=== PATIENT | female | born 2000 | race Caucasian/White ===

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

== ENCOUNTER → 2022-01-18 09:30 | Outpatient (BNVA) | payer MEDICAID, SELFPAY | PROVIDERS: Family Provider Nurse Practitioner Family; PCP Nurse Practitioner Family; Visit Provider Obstetrics & Gynecology | DX: Z34.90 Encounter for supervision of normal pregnancy, unspecified, unspecified trimester (principal) | CPT/HCPCS: 81000 ==

== ENCOUNTER 2022-02-22 10:19 | Outpatient (CLI) | payer MEDICAID, SELFPAY ==
[2022-02-22 12:07] LABS: HIV 1 & 2 Antibody Non-Reactive (Non-Reactiv); HIV 1 & 2 Antigen Non-Reactive (Non-Reactiv)
[2022-02-22 12:09] LABS: Rubella IgG 10.1 IU/mL (0.0-10.0)
[2022-02-22 12:13] LABS: Hepatitis B Surface Antigen Non-Reactive (Nonreactive); Hepatitis C Virus Antibody Non-Reactive (Nonreactive)
== END 2022-02-22 10:20 | disposition home or self-care (01) ==
LOC: LAB 10:22
PROVIDERS: Visit Provider Obstetrics & Gynecology
DX: Z34.90 Encounter for supervision of normal pregnancy, unspecified, unspecified trimester (principal)
CPT/HCPCS: 36415; 80307; 81000; 86762; 86803; 86850; 86900; 87086; 87340; 87491; 87591; 87806

== ENCOUNTER → 2022-02-23 11:07 | Outpatient (BNVA) | payer MEDICAID, SELFPAY | PROVIDERS: Family Provider Nurse Practitioner Family; PCP Nurse Practitioner Family; Visit Provider Obstetrics & Gynecology | DX: Z34.90 Encounter for supervision of normal pregnancy, unspecified, unspecified trimester (principal) | CPT/HCPCS: 86592 ==

== ENCOUNTER → 2022-03-01 10:02 | Outpatient (BNVA) | payer MEDICAID, SELFPAY | PROVIDERS: Family Provider Nurse Practitioner Family; PCP Nurse Practitioner Family; Visit Provider Obstetrics & Gynecology | DX: Z34.90 Encounter for supervision of normal pregnancy, unspecified, unspecified trimester (principal) | CPT/HCPCS: 84315; 87086 ==

== ENCOUNTER → 2022-03-15 11:00 | Outpatient (BNVA) | payer MEDICAID, SELFPAY | PROVIDERS: Family Provider Nurse Practitioner Family; PCP Nurse Practitioner Family; Visit Provider Obstetrics & Gynecology | DX: Z34.90 Encounter for supervision of normal pregnancy, unspecified, unspecified trimester (principal) | CPT/HCPCS: 81000; 84443; 85025; 87086 ==

== ENCOUNTER → 2022-03-18 12:40 | Outpatient (BNVA) | payer MEDICAID, SELFPAY | PROVIDERS: Family Provider Nurse Practitioner Family; PCP Nurse Practitioner Family; Visit Provider Emergency Medicine | DX: J02.9 Acute pharyngitis, unspecified (principal); J00 Acute nasopharyngitis [common cold]; J02.8 Acute pharyngitis due to other specified organisms; B97.89 Other viral agents as the cause of diseases classified elsewhere | CPT/HCPCS: 87071; 87880 ==

== ENCOUNTER → 2022-04-06 11:00 | Outpatient (BNVA) | payer MEDICAID, SELFPAY | PROVIDERS: Family Provider Nurse Practitioner Family; PCP Nurse Practitioner Family; Visit Provider Obstetrics & Gynecology | DX: Z34.90 Encounter for supervision of normal pregnancy, unspecified, unspecified trimester (principal) | CPT/HCPCS: 81000; 87086 ==

== ENCOUNTER → 2022-05-01 10:54 | Outpatient (BNVA) | payer MEDICAID, SELFPAY | PROVIDERS: Family Provider Nurse Practitioner Family; PCP Nurse Practitioner Family; Visit Provider Obstetrics & Gynecology | DX: Z34.90 Encounter for supervision of normal pregnancy, unspecified, unspecified trimester (principal) | CPT/HCPCS: 81000; 87086 ==

== ENCOUNTER → 2022-06-01 12:48 | Outpatient (BNVA) | payer MEDICAID, SELFPAY | PROVIDERS: Family Provider Nurse Practitioner Family; PCP Nurse Practitioner Family; Visit Provider Obstetrics & Gynecology | DX: Z34.90 Encounter for supervision of normal pregnancy, unspecified, unspecified trimester (principal) | CPT/HCPCS: 81000; 82950; 85025; 86850 ==

== ENCOUNTER → 2022-06-09 14:45 | Outpatient (BNVA) | payer MEDICAID, SELFPAY | PROVIDERS: Family Provider Nurse Practitioner Family; PCP Nurse Practitioner Family; Visit Provider Obstetrics & Gynecology | DX: Z34.90 Encounter for supervision of normal pregnancy, unspecified, unspecified trimester (principal) | CPT/HCPCS: 81000; 87086 ==

== ENCOUNTER → 2022-06-23 13:28 | Outpatient (BNVA) | payer MEDICAID, SELFPAY | PROVIDERS: Family Provider Nurse Practitioner Family; PCP Nurse Practitioner Family; Visit Provider Obstetrics & Gynecology | DX: Z34.90 Encounter for supervision of normal pregnancy, unspecified, unspecified trimester (principal) | CPT/HCPCS: 81000 ==

== ENCOUNTER → 2022-07-10 15:10 | Outpatient (BNVA) | payer MEDICAID, SELFPAY | PROVIDERS: Family Provider Nurse Practitioner Family; PCP Nurse Practitioner Family; Visit Provider Nurse Practitioner Women's Health | DX: O26.899 Other specified pregnancy related conditions, unspecified trimester (principal); Z67.91 Unspecified blood type, Rh negative; O26.86 Pruritic urticarial papules and plaques of pregnancy (PUPPP); Z3A.00 Weeks of gestation of pregnancy not specified | CPT/HCPCS: 81000; 85025 ==

== ENCOUNTER → 2022-07-21 13:40 | Outpatient (BNVA) | payer MEDICAID, SELFPAY | PROVIDERS: Family Provider Nurse Practitioner Family; PCP Nurse Practitioner Family; Visit Provider Obstetrics & Gynecology | DX: Z34.90 Encounter for supervision of normal pregnancy, unspecified, unspecified trimester (principal) | CPT/HCPCS: 81000; 87081 ==

== ENCOUNTER → 2022-07-27 11:10 | Outpatient (BNVA) | payer MEDICAID, SELFPAY | PROVIDERS: Family Provider Nurse Practitioner Family; PCP Nurse Practitioner Family; Visit Provider Obstetrics & Gynecology | DX: Z36.9 Encounter for antenatal screening, unspecified (principal) | CPT/HCPCS: 76816 ==

== ENCOUNTER → 2022-07-28 11:30 | Outpatient (BNVA) | payer MEDICAID, SELFPAY | PROVIDERS: Family Provider Nurse Practitioner Family; PCP Nurse Practitioner Family; Visit Provider Obstetrics & Gynecology | DX: Z34.90 Encounter for supervision of normal pregnancy, unspecified, unspecified trimester (principal) | CPT/HCPCS: 81000 ==

== ENCOUNTER → 2022-08-04 10:50 | Outpatient (BNVA) | payer MEDICAID, SELFPAY | PROVIDERS: Family Provider Nurse Practitioner Family; PCP Nurse Practitioner Family; Visit Provider Obstetrics & Gynecology | DX: Z34.90 Encounter for supervision of normal pregnancy, unspecified, unspecified trimester (principal) | CPT/HCPCS: 84315; 87086 ==

== ENCOUNTER 2022-08-11 04:41 | Inpatient (IN) | payer MEDICAID, SELFPAY ==
[2022-08-11] VITALS (27 sets, daily range): BP systolic 120–141; BP diastolic 60–89; PULSE 67–96; RESP 13–18; TEMP 36.5–36.8; O2SAT 96–100; BMI 34.2
--- NOTE | 2022-08-11 04:48 | USR_ITS ---
PROCEDURE INFORMATION: Exam: US , Limited Exam date and time: 08/11/2022 6:04 AM Age: 22 years old Clinical indication: Screening exam; Other: Check for position; ; Additional info: Verify presentation TECHNIQUE: Imaging protocol: Real-time ultrasound of the maternal uterus with image documentation. Exam focused on the clinical indication. COMPARISON: [place] [id number] 07/27/2022 11:17 AM FINDINGS: Single living fetus in breech position. heart activity documented by the technologist, 164 bpm. Anterior placenta, grade 3. No visible placental abnormality on the provided images. Subjectively, amniotic fluid volume appears lower limit of normal to mildly decreased for gestation, GHADA 5.4 cm. The region of the cervix is not well visualized at this time. measurements were not obtained at this time. Evaluation of anatomy was not performed at this time. No visible maternal adnexal abnormality. The urinary bladder was not completely evaluated/imaged at this time. US/US OB limited [id number] IMPRESSION: 1. Single living intrauterine fetus, breech position. 2. Subjectively, amniotic fluid volume appears lower limit of normal to mildly decreased for gestation, GHADA 5.4 cm. 3. Anterior placenta. 4. Other details discussed above.
[2022-08-11 05:16] LABS: Basophils # 0.1 10^3/uL (0.0-0.1); Basophils % 0.5 %; Eosinophils # 0.1 10^3/uL (0.0-0.8); Hematocrit 38.5 % (37.0-47.0); Hemoglobin 12.5 g/dL (11.5-15.3); Lymphocytes % 28.2 %; Mean Corpuscular HGB Conc 32.5 g/dL (30.0-36.0); Mean Corpuscular Hemoglobin 29.8 pg (28.0-34.0); Mean Corpuscular Volume 91.9 fl (81-99); Mean Platelet Volume 10.9 fL (7.4-10.4); Monocytes # 0.7 10^3/uL (0.2-0.9); Neutrophils # 6.54 10^3/uL (1.8-8.0); Neutrophils % 62.4 %; Nucleated Red Blood Cells % 0 %; Platelet Count 304 10^3/cmm (130-400); Red Blood Count 4.19 10^6/uL (4.1-5.3); Red Cell Distribution Width 13.2 % (12.1-15.1); White Blood Count 10.5 10^3/uL (4.5-13.0)
[2022-08-11 05:35] LABS: Alanine Aminotransferase 12 U/L (0-33); Albumin Level 3.8 g/dL (3.5-5.2); Alkaline Phosphatase 160 U/L (35-105); Anion Gap 15.9 (5-19); Aspartate Amino Transferase 15 U/L (0-32); Blood Urea Nitrogen 9 mg/dL (6-20); Calcium 8.9 mg/dL (8.5-10.5); Carbon Dioxide 19 mmol/L (22-29); Chloride 102 mmol/L (98-107); Globulin 3.4 g/dL (1.3-4.6); Glomerular Filtration Rate 203.5 mL/min (90-130); Glucose 83 mg/dL (65-115); Osmolality Calculated 274 mOsm/kg (285-295); Potassium 3.9 mmol/L (3.5-5.1); Sodium 133 mmol/L (136-145); Total Bilirubin 0.3 mg/dL (0.15-1.2); Total Protein 7.2 g/dL (6.6-8.7)
[2022-08-11] MEDS: lactated ringers 1,000 ML 999 ML IV (06:12)
[2022-08-11] MEDS: metoclopramide 5 mg/mL SDV 2 mL 10 MG IVP (06:44)
[2022-08-11] MEDS: clindamycin 900 MG/50 ML PREMIX 100 MG IV (06:45)
[2022-08-11] MEDS: citric acid-sodium citrate 30 mL UDC PO (06:45)
[2022-08-11] MEDS: famotidine 20 mg/2 mL INJ IVP (06:45)
--- NOTE | 2022-08-11 07:08 | W.PM.OPSUD ---
Surgery/Procedure H&P Update DATE OF PROCEDURE: August 11, 2022 DATE H&P PERFORMED: 08/04/22 H&P UPDATE INFORMATION: I have reviewed H&P completed within last 30 days, I have examined patient prior to procedure and No changes to prior documentation PLANNED PROCEDURE: Operation Date: 08/11/22 07:20 Proposed Procedures p Section 16060,O32.1XX0(Not Applicable) - Lovely Fajardo MD Related Problem List Diagnoses (1) Breech presentation, no version: (2) Rh negative status during : (3) Supervision of normal :
[2022-08-11] MEDS: methylergonovine 0.2 mg/mL INJ 1 mL IM (07:50)
--- NOTE | 2022-08-11 08:04 | ANES.PREANE2 ---
Pre-Anesthetic Assessment Height/Weight: Height 1.7 m Weight 99.337 kg Temp Pulse BP O2 Del Method 98.2 F 79 134/71 Room Air 08/11/22 05:24 08/11/22 05:21 08/11/22 05:21 08/11/22 05:08 Operation Date: 08/11/22 07:20 Proposed Procedures p Section 45897,O32.1XX0(Not Applicable) - Lovely Fajardo MD Was Beta Nikki taken within 24 hours: N/A Was Clonidine taken within 24 hours: N/A Last Intake: 20:30 Social No tobacco Exam alert and oriented x 3 Airway Submandibular: within normal limits Cervical ROM: within normal limits Mallampati: Class II Dentition: full History/ROS No significant history except as noted Pulmonary None reported CV/HEM None reported None reported Hepatic None reported GI None reported Metabolic None reported Musc/skel None reported Neuropsych None reported Anesthetic Plan ASA status: 2 Anesthesia: Regional (specify below) Other: Spinal with general as backup Risk of > 500 ml blood loss (7ml/kg in children): Yes, adequate IV access and fluids planned Medications/Allergies Home Medications Medication Instructions Recorded Confirmed Last Taken Type PNV 153-FA 400 mcg-om3 35 mg-dha 1 tab PO DAILY 12/23/21 08/11/22 08/10/22 History 25 mg-epa 5 mg-fish oil chew tablet ( Gummies) ferrous sulfate 325 mg (65 mg 325 mg PO DAILY 06/09/22 08/11/22 08/10/22 History iron) tablet Allergies Allergy/AdvReac Type Severity Reaction Status Date / Time cefdinir [From Omnicef] AdvReac breaks out Verified 08/11/22 05:04 Current Medications Generic Name Dose Route Start Last Admin Trade Name Freq PRN Reason Stop Dose Admin Lactated Ringer's 1,000 mls @ 125 mls/hr 08/11/22 04:45 08/11/22 06:12 Lactated Ringers IV 999 mls/hr .Q8H LICHA Administration PFSH Anesthesia Medical History Eustachian tube dysfunction No pertinent past medical history neghx: htn,dm,thyroid,dvt/pe PCP: None Surgical History No pertinent past surgical history Family History Denies family history of Colon cancer Ovarian cancer Diabetes Heart disease Hypercholesteremia Breast cancer Hypertension Uterine cancer Thyroid disease Stroke Social History Smoking and tobacco status: never smoked Female Reproductive History : 1 Data Anesthesia 08/11/22 05:00 08/11/22 05:00 Short CBC 08/11/22 Range/Units 05:00 WBC 10.5 (4.5-13.0) 10^3/uL Hgb 12.5 (11.5-15.3) g/dL Hct 38.5 (37.0-47.0) % MCV 91.9 (81-99) fl Plt Count 304 (130-400) 10^3/cmm Neut % (Auto) 62.4 % Neut # (Auto) 6.54 (1.8-8.0) 10^3/uL BMP 08/11/22 05:00 Sodium 133 L Potassium 3.9 Chloride 102 Carbon Dioxide 19 L BUN 9 Creatinine 0.4 L Glucose 83 Calcium 8.9 Liver Function 08/11/22 Range/Units 05:00 Total Bilirubin 0.3 (0.15-1.2) mg/dL AST 15 (0-32) U/L ALT 12 (0-33) U/L Alkaline Phosphatase 160 H (35-105) U/L Albumin 3.8 (3.5-5.2) g/dL Cardiac Studies: No Data to Display
--- NOTE | 2022-08-11 08:28 | P.OP_ITS ---
Operative Report Date of procedure: August 11, 2022 Pre-op diagnosis: iup@39 weeks, breech presentation Post-op diagnosis: same Post-op findings: term male in complete breech presentation Procedure done: primary Pathology: none sent Surgeon: Lovely Fajardo Anesthesia: Other (spinal) Estimated blood loss (mL): 500 IV fluids (mL): 1,600 Urine output (mL): 50 Complications: none Condition: stable Disposition: floor Procedure: The patient was taken to the operating room where spinal anesthesia was administered and found to be adequate. She was prepped and draped in the normal sterile fashion in the dorsal supine position with a leftward tilt. A Pfan nenstiel skin incision was made and carried down to the underlying layer of fascia. The fascia was nicked in the midline and extended laterally with the Wei scissors. The fascia was then tented up and the rectus muscles dissected off sharply. The rectus muscles were and the peritoneum entered bluntly with the digit. The peritoneal incision was extended superiorly and inferiorly with good visualization of the bladder. The Andre O retractor was placed. It was clear of any bowel or omentum. The bladder flap was created sharply with the Metzenbaum scissors. A low transverse uterine incision was made and carried down to the bag of water. The bag of water was ruptured and the uterine incision extended cephalocaudad. The breech was grasped and brought through the incision. This was followed by the the body and head. The nose and mouth were bulb suctioned. The baby was allowed to rest, while being dried, for 1 minute and then the cord was clamped and cut. The baby was handed to the [facility] nurse. The placenta was delivered by expression. The uterus was exteriorized and cleared of all clots and debris. The uterus had decreased tone. The patient was given a dose of methergine IM and 20 units of pitocin IM in the uterine fundus. The uterine incision was closed with 0 Vicryl in a running fashion. A second imbricating layer of 3-0 Monocryl was used to close the uterus. The bladder flap was closed with 3-0 Monocryl. There was excellent hemostasis. The Andre O retractor was removed. The uterus was returned to the abdomen. The peritoneum was closed with 3-0 Monocryl, incorporating the rectus muscle. The fascia was closed with 0 Vicryl in 2 separate sutures overlapping in the midline. The skin was closed with absorbable sadaf. Apgars on baby 9 at 1 minute and 9 at 5 minutes. weight 5 pounds 8 ounces. Mother and baby were stable post delivery.
[2022-08-11] MEDS: dextrose 5%-lactated ringers 1,000 ML 125 ML IV (10:08)
[2022-08-11] MEDS: ketorolac 30 mg/mL INJ IVP ×3 (10:08→22:05)
--- NOTE | 2022-08-11 16:18 | PC.NURSE ---
Patient up to chair at this time with standby assist. MARCIE RN
[2022-08-11 19:43] LABS: Hematocrit 34.4 % (37.0-47.0); Hemoglobin 11.2 g/dL (11.5-15.3); Mean Corpuscular HGB Conc 32.6 g/dL (30.0-36.0); Mean Corpuscular Hemoglobin 30.6 pg (28.0-34.0); Mean Platelet Volume 10.9 fL (7.4-10.4); Platelet Count 259 10^3/cmm (130-400); Red Blood Count 3.66 10^6/uL (4.1-5.3); Red Cell Distribution Width 13.3 % (12.1-15.1); White Blood Count 12.2 10^3/uL (4.5-13.0)
[2022-08-12] VITALS (9 sets, daily range): BP systolic 113–132; BP diastolic 57–71; PULSE 82–103; RESP 17–18; TEMP 36.4–36.7
[2022-08-12] MEDS: ketorolac 30 mg/mL INJ IVP (03:55)
[2022-08-12] MEDS: docusate sodium 100 mg Capsule PO ×2 (09:06→20:54)
[2022-08-12] MEDS: prenatal vitamin Capsule 1 CAP PO (09:06)
[2022-08-12] MEDS: HYDROcodone-acetaminophen 5-325 mg Tablet PO ×3 (09:06→20:55)
--- NOTE | 2022-08-12 13:42 | PM.PN ---
Subjective Subjective: The patient is doing well. Her pain is controlled on tylenol and motrin Vitals/I&O/Wt Last Vital Signs Temp 98.1 F 08/12/22 09:08 Pulse 103 H 08/12/22 09:08 Resp 18 08/12/22 08:00 BP 113/57 08/12/22 09:08 Pulse Ox 99 08/11/22 08:55 O2 Del Method Room Air 08/11/22 08:55 08/11/22 08/12/22 08/12/22 22:59 06:59 14:59 Output Total 1000 / 2100 400 / 2500 Balance -1000 / -500 -400 / -900 Weight last 48 hrs Weight 219 lb Physical Exam Narrative: The patient is ambulating, tolerating a regular diet and pain is well controlled. Const: COMMON NORMALS: no acute distress, patient oriented x3, no limitations, healthy appearing, alert and well nourished GENERAL APPEARANCE: cooperative, comfortable, well kempt and well developed ORIENTATION/CONSCIOUSNESS: Yes awake, Yes oriented to person, Yes oriented to place and Yes oriented to time Resp: COMMON NORMALS: normal respiratory effort EFFORT & INSPECTION: Yes able to speak in complete sentences GI: COMMON NORMALS: Soft to palpation and non-tender PALPATION: Yes Soft to palpation Extremity: COMMON NORMALS: no calf tenderness Neuro: COMMON NORMALS: patient oriented x3 SENSORIUM/ORIENTATION: Yes alert, Yes oriented to person, Yes oriented to place and Yes oriented to time Psych: APPEARANCE: Yes well kempt Urinary Catheter Management: Aguirre: Cath Placed During This Visit: yes, but has since been removed by the nurse Reason for Continuing Indwelling Catheter: Decision to DC Catheter Urinary Catheter Date of Insertion: 08/11/22 Urinary Catheter Time of Insertion: 06:50 Date Urinary Catheter Removed: 08/12/22 Time Urinary Catheter Discontinued: 00:15 Data 08/11/22 19:35 08/11/22 05:00 Micro: Microbiology 08/11/22 07:30 Urine Culture - Preliminary Urine Catheterized Attestations Medical Necessity Statement*: The patient will be here two midnights Coding Level of Care Code Acute Code for Chg Fwd Diagnoses
[2022-08-12] MEDS: ibuprofen 800 mg tablet PO ×2 (16:13→20:54)
--- NOTE | 2022-08-12 18:26 | PC.NURSE ---
Rhogam given at 1747. VAlicia LEVI witnessed administration of Rhogam at this time. Tar did not save writers verification of the Rhogam within Tar. Notification was received Rhogam was late and unable to be administered. Blood bank was notified Rhogam was given within time the 20 minute time frame and that writers Vitals signs saved but the verification did not. Blood bank stated to reverify Rhogam and link a nurses note.
[2022-08-13 04:00] VITALS: BP 100/54; PULSE 76
[2022-08-13 04:01] VITALS: TEMP 36.2
[2022-08-13] MEDS: HYDROcodone-acetaminophen 5-325 mg Tablet PO (06:33)
[2022-08-13] MEDS: prenatal vitamin Capsule 1 CAP PO (08:45)
[2022-08-13] MEDS: ibuprofen 800 mg tablet PO (08:45)
[2022-08-13] MEDS: docusate sodium 100 mg Capsule PO (08:45)
--- NOTE | 2022-08-13 08:50 | ANE.PACU2 ---
Inpatient post-anesthesia follow up: Airway intact: Yes Vital signs: Temperature 97.2 F Pulse Rate 76 Respiratory Rate 17 Blood Pressure 100/54 Pulse Oximetry 99 Oxygen Delivery Me thod Room Air Oxygen Flow Rate Fraction of Inspir ed Oxygen Hydration adequate: Yes Nausea and vomiting: No Pain level: 2 Mental status: Baseline
[2022-08-13 09:38] VITALS: BP 124/64; PULSE 103; TEMP 36.2
--- NOTE | 2022-08-13 14:22 | PM.DCS ---
Discharge Providers Date of Admission: 08/11/22 04:41 Date of Discharge: August 13, 2022 Attending Provider at Admission: Lovely Fajardo MD Attending Provider at Discharge: Lovely Fajardo MD Primary Care Provider: Orlin Roper Diagnoses at Discharge Discharge Diagnosis (1) Breech presentation, no version: Status: Acute (2) Rh negative status during : Status: Acute (3) Supervision of normal : Status: Acute Reason for Visit Reason for Visit: C Section Hospital Course Hospital Course The patient was admitted for repeat . She did well postoperatively and was ready for discharge on day #2 Physical Exam Narrative: The patient is doing well today. Pain is well controlled. She is ambulating without difficulty and tolerating a regular diet. Const: COMMON NORMALS: no acute distress, patient oriented x3, no limitations, healthy appearing, alert and well nourished GENERAL APPEARANCE: cooperative, comfortable, well kempt and well developed ORIENTATION/CONSCIOUSNESS: Yes awake, Yes oriented to person, Yes oriented to place and Yes oriented to time Resp: COMMON NORMALS: normal respiratory effort EFFORT & INSPECTION: Yes able to speak in complete sentences GI: COMMON NORMALS: Soft to palpation and non-tender PALPATION: Yes Soft to palpation Extremity: COMMON NORMALS: no calf tenderness Neuro: COMMON NORMALS: patient oriented x3 SENSORIUM/ORIENTATION: Yes alert, Yes oriented to person, Yes oriented to place and Yes oriented to time Psych: APPEARANCE: Yes well kempt Urinary Catheter Management: Aguirre: Cath Placed During This Visit: yes, but has since been removed by the nurse Reason for Continuing Indwelling Catheter: Decision to DC Catheter Urinary Catheter Date of Insertion: 08/11/22 Urinary Catheter Time of Insertion: 06:50 Date Urinary Catheter Removed: 08/12/22 Time Urinary Catheter Discontinued: 00:15 Discharge Data Studies Completed and Pending Completed Studies During Hospitalization Category Date Time Status [place] [id number] Urgent Ultrasound 08/11/22 04:48 Completed Radiology Impressions Obstetrics Ultrasound 08/11/22 04:48 IMPRESSION: 1. Single living intrauterine fetus, breech position. 2. Subjectively, amniotic fluid volume appears lower limit of normal to mildly decreased for gestation, GHADA 5.4 cm. 3. Anterior placenta. 4. Other details discussed above. Laboratory Results WBC 12.2 10^3/uL (4.5-13.0) 08/11/22 19:35 RBC 3.66 10^6/uL (4.1-5.3) L 08/11/22 19:35 Hgb 11.2 g/dL (11.5-15.3) L 08/11/22 19:35 Hct 34.4 % (37.0-47.0) L 08/11/22 19:35 MCV 94.0 fl (81-99) 08/11/22 19:35 MCH 30.6 pg (28.0-34.0) 08/11/22 19:35 MCHC 32.6 g/dL (30.0-36.0) 08/11/22 19:35 RDW 13.3 % (12.1-15.1) 08/11/22 19:35 Plt Count 259 10^3/cmm (130-400) 08/11/22 19:35 MPV 10.9 fL (7.4-10.4) H 08/11/22 19:35 Neut % (Auto) 62.4 % 08/11/22 05:00 Lymph % (Auto) 28.2 % 08/11/22 05:00 [place] % (Auto) 7.0 % 08/11/22 05:00 Eos % (Auto) 1.0 % 08/11/22 05:00 Baso % (Auto) 0.5 % 08/11/22 05:00 Neut # (Auto) 6.54 10^3/uL (1.8-8.0) 08/11/22 05:00 Lymph # (Auto) 3.0 10^3/uL (1.5-6.5) 08/11/22 05:00 [place] # (Auto) 0.7 10^3/uL (0.2-0.9) 08/11/22 05:00 Eos # (Auto) 0.1 10^3/uL (0.0-0.8) 08/11/22 05:00 Baso # (Auto) 0.1 10^3/uL (0.0-0.1) 08/11/22 05:00 Nucleated RBC % (auto) 0 % 08/11/22 05:00 Nucleated RBCs # 0.0 /100WBC 08/11/22 05:00 Sodium 133 mmol/L (136-145) L 08/11/22 05:00 Potassium 3.9 mmol/L (3.5-5.1) 08/11/22 05:00 Chloride 102 mmol/L (98-107) 08/11/22 05:00 Carbon Dioxide 19 mmol/L (22-29) L 08/11/22 05:00 Anion Gap 15.9 (5-19) 08/11/22 05:00 BUN 9 mg/dL (6-20) 08/11/22 05:00 Creatinine 0.4 mg/dL (0.5-0.9) L 08/11/22 05:00 GFR Calculation 203.5 mL/min (90-130) H 08/11/22 05:00 Glucose 83 mg/dL (65-115) 08/11/22 05:00 Calculated Osmolality 274 mOsm/kg (285-295) L 08/11/22 05:00 Calcium 8.9 mg/dL (8.5-10.5) 08/11/22 05:00 Total Bilirubin 0.3 mg/dL (0.15-1.2) 08/11/22 05:00 AST 15 U/L (0-32) 08/11/22 05:00 ALT 12 U/L (0-33) 08/11/22 05:00 Alkaline Phosphatase 160 U/L (35-105) H 08/11/22 05:00 Total Protein 7.2 g/dL (6.6-8.7) 08/11/22 05:00 Albumin 3.8 g/dL (3.5-5.2) 08/11/22 05:00 Globulin 3.4 g/dL (1.3-4.6) 08/11/22 05:00 Blood Type A Negative 08/11/22 05:00 Rho(D) Type Negative 08/11/22 05:00 Antibody Screen Positive 08/11/22 05:00 Antibody Identification Anti-D 08/11/22 05:00 Screen Negative (Negative) 08/11/22 19:35 Vitals Last Vital Signs Temp 97.2 F L 08/13/22 09:38 Pulse 103 H 08/13/22 09:38 Resp 17 08/12/22 17:47 BP 124/64 08/13/22 09:38 Pulse Ox 99 08/11/22 08:55 O2 Del Method Room Air 08/11/22 08:55 Discharge Plan Discharge Patient Disposition: Home Condition: Stable Prescriptions: New ibuprofen 800 mg Tablet 800 mg PO TID Qty: 30 0RF hydrocodone-acetaminophen 5-325 mg Tablet 1 tab PO Q4H PRN (Reason: Moderate To Severe Pain) Qty: 30 0RF Continued Gummies 400 mcg-35 mg- 25 mg-5 mg tablet,chewable 1 tab PO DAILY ferrous sulfate 325 mg (65 mg iron) tablet 325 mg PO DAILY Discharge Orders: Discharge Order (Routine); Ordered 08/13/22 Ordered By: Lovely Fajardo Patient Instructions: Opioid Safety Discharge Attestations Time Spent in Discharge Care*: less than 30 min Quality Metrics Clinical Quality Measures [ No reported AMI, CVA or VTE this stay] Coding Level of Care Code Acute Code for Chg Fwd Diagnoses Breech presentation, no version O32.1XX0 Rh negative status during O26.899; Z67.91 Supervision of normal Z34.90
[2022-08-13 14:33] VITALS: BP 133/65; PULSE 84; TEMP 36.6
[2022-08-13 14:53] VITALS: BP 133/64; RESP 16; TEMP 36.7
== END 2022-08-13 14:54 | disposition home or self-care (01) | DRG 787 ==
PROVIDERS: Admitting Provider Obstetrics & Gynecology; Family Provider Nurse Practitioner Family; PCP Nurse Practitioner Family; Visit Provider Obstetrics & Gynecology
PROC: 10D00Z1 Extraction of Products of Conception, Low, Open Approach (ICD-10-PCS; CPT 59514; principal; 2022-08-11 07:00)
DX: O32.1XX0 Maternal care for breech presentation, not applicable or unspecified (principal); O36.0930 Maternal care for other rhesus isoimmunization, third trimester, not applicable or unspecified; Z3A.39 39 weeks gestation of pregnancy; Z37.0 Single live birth
CPT/HCPCS: 36415; 36430; 51702; 59025; 59409; 76815; 80053; 80503; 85025; 85027; 85460; 86850; 86870; 86900; 87086; 90384; 96372; 96374; 96376; 99211; J1580; J1885; J2210; J2274; J2405; J2590; J2765; J3490; J7120; J7121

== ENCOUNTER → 2023-11-13 08:19 | Outpatient (BNVA) | payer MEDICAID, SELFPAY | PROVIDERS: Family Provider Nurse Practitioner Family; PCP Nurse Practitioner Family; Visit Provider Nurse Practitioner Women's Health | DX: N92.6 Irregular menstruation, unspecified (principal); O99.210 Obesity complicating pregnancy, unspecified trimester; Z78.9 Other specified health status; Z13.29 Encounter for screening for other suspected endocrine disorder | CPT/HCPCS: 81025; 83036; 84443; 84702 ==

== ENCOUNTER → 2023-11-20 08:51 | Outpatient (BNVA) | payer MEDICAID, SELFPAY | PROVIDERS: Family Provider Nurse Practitioner Family; PCP Nurse Practitioner Family; Visit Provider Nurse Practitioner Women's Health | DX: Z36.87 Encounter for antenatal screening for uncertain dates (principal); Z3A.09 9 weeks gestation of pregnancy; Z98.890 Other specified postprocedural states | CPT/HCPCS: 76817 ==

== ENCOUNTER → 2023-11-27 07:57 | Outpatient (BNVA) | payer MEDICAID, SELFPAY | PROVIDERS: Family Provider Nurse Practitioner Family; PCP Nurse Practitioner Family; Visit Provider Nurse Practitioner Women's Health | DX: Z34.90 Encounter for supervision of normal pregnancy, unspecified, unspecified trimester (principal) | CPT/HCPCS: 80307; 81000; 85025; 86592; 86762; 86803; 86850; 86900; 87086; 87340; 87806 ==

== ENCOUNTER → 2023-12-10 13:11 | Outpatient (BNVA) | payer MEDICAID, SELFPAY | PROVIDERS: Family Provider Nurse Practitioner Family; PCP Nurse Practitioner Family; Visit Provider Obstetrics & Gynecology | DX: O09.899 Supervision of other high risk pregnancies, unspecified trimester (principal) | CPT/HCPCS: 81000; 87491; 87591; 88175 ==

== ENCOUNTER → 2024-01-07 09:47 | Outpatient (BNVA) | payer MEDICAID, SELFPAY | PROVIDERS: Family Provider Nurse Practitioner Family; PCP Nurse Practitioner Family; Visit Provider Obstetrics & Gynecology | DX: Z36.4 Encounter for antenatal screening for fetal growth retardation (principal); Z3A.17 17 weeks gestation of pregnancy | CPT/HCPCS: 76815 ==

== ENCOUNTER → 2024-01-16 08:21 | Outpatient (BNVA) | payer MEDICAID, SELFPAY | PROVIDERS: Family Provider Nurse Practitioner Family; PCP Nurse Practitioner Family; Visit Provider Nurse Practitioner Women's Health | DX: O09.899 Supervision of other high risk pregnancies, unspecified trimester (principal) | CPT/HCPCS: 81000; 82105 ==

== ENCOUNTER 2024-01-29 07:28 | Emergency (ER) | payer MEDICAID, SELFPAY ==
[2024-01-29 07:42] VITALS: BP 137/79; PULSE 83; RESP 18; TEMP 36.8; O2SAT 97; BMI 34.5
--- NOTE | 2024-01-29 07:43 | ED_ITS ---
HPI - 2 General: Chief complaint: Vaginal Bleeding Stated complaint: 20 wks pg vaginal bleeding Time Seen by Provider: 01/29/24 07:38 History of Present Illness: 23-year-old G2, P1 female at 19 weeks an d 5 days gestation by first trimester ultrasound. She has noticed vaginal bleeding after she urinates he will have a few drops of blood no active bleeding at this time. She has noted gross movement which is unchanged. No significant cramping or pain. Associated symptoms: Deny abdominal pain or dysuria Related Data Home Medications Medication Instructions Recorded Confirmed docosahexaenoic acid 200 mg mg PO 11/13/23 01/16/24 capsule ( DHA) ferrous sulfate 325 mg (65 mg 325 mg PO DAILY 11/13/23 01/16/24 iron) tablet Allergies Allergy/AdvReac Type Severity Reaction Status Date / Time cefdinir [From Omnicef] AdvReac breaks out Verified 01/16/24 08:26 Review of Systems 2 Const: Denies: fever(s) or chills Card: Denies: chest pain Resp: Denies: dyspnea GI: Denies: abdominal pain : Denies: dysuria, urinary frequency or urinary urgency Musc: Denies: neck pain or back pain Skin/Breast: Denies: rash PFSH ED 2 PFSH: Medical History Rh negative status during No pertinent past medical history neghx: htn,dm,thyroid,dvt/pe PCP: None Surgical History Hx of section (~07/2022) Primary LTCS performed for complete breech presentation. [facility] at [facility]. Family History Denies family history of Colon cancer Ovarian cancer Diabetes Heart disease Hypercholesteremia Breast cancer Hypertension Uterine cancer Thyroid disease Stroke Social History Smoking and tobacco/nicotine status: never used tobacco/nicotine Physical Exam 2 Const: COMMON NORMALS: no acute distress GENERAL APPEARANCE: cooperative and comfortable ORIENTATION/CONSCIOUSNESS: Yes awake, Yes oriented to person, Yes oriented to place and Yes oriented to time HENMT: COMMON NORMALS: normocephalic, atraumatic and hearing grossly normal bilaterally HEAD & SCALP: normocephalic and atraumatic Resp: COMMON NORMALS: normal respiratory effort, No retractions, No use of accessory muscles and clear to auscultation bilaterally AUSCULTATION: clear to auscultation bilaterally Cardio: COMMON NORMALS: regular rate, regular rhythm and No murmurs present (Cardio) RATE: regular rate RHYTHM: regular rhythm GI: COMMON NORMALS: Soft to palpation and No hepatosplenomegaly present A USCULTATION: Yes normoactive bowel sounds PALPATION: Yes Soft to palpation, No Tenderness to palpation present (GI), No Guarding due to palpation present (GI) and Yes No hepatosplenomegaly present Extremity: COMMON NORMALS: normal to inspection, capillary refill normal, no clubbing, cyanosis or edema, no calf tenderness and no pedal edema Neuro: SENSORIUM/ORIENTATION: Yes oriented to person, Yes oriented to place and Yes oriented to time Skin: COMMON NORMALS: no rashes or lesions noted GENERAL SKIN EXAM: no rashes or lesions noted Course 2 Vital Signs: Vital signs: Vital Signs Temperature 98.2 F 01/29/24 07:42 Pulse Rate 83 01/29/24 07:42 Respiratory Rate 18 01/29/24 07:42 Blood Pressure 137/79 01/29/24 07:42 Pulse Oximetry 97 01/29/24 07:42 Oxygen Delivery Me thod Room Air 01/29/24 07:42 MDM - OB/Uterine Contractions Medical Decision Making Discussed Dr. Osei usually sees the patient who prefer to see the patient in the OB department was ordered a UA and a OB ultrasound per his request patient will be moved back to OB he states he will see the patient between cases this morning. Patient is Rh- according to previous laboratory studies. Lab Data 01/29/24 07:53 01/29/24 07:53 Radiology Impressions Obstetrics Ultrasound 01/29/24 07:47 IMPRESSION: 1. Normal anterior placenta with no abruption or previa. 2. Normal amniotic fluid. 3. Visualized cervix is closed. Laboratory Results WBC 6.91 10^3/uL (3.29-11.43) 01/29/24 07:53 RBC 3.91 10^6/uL (3.85-5.65) 01/29/24 07:53 Hgb 11.70 g/dL (11.27-16.99) 01/29/24 07:53 Hct 36.1 % (36-47) 01/29/24 07:53 MCV 92.3 fl (85-98) 01/29/24 07:53 MCH 29.9 pg (27-33) 01/29/24 07:53 MCHC 32.4 g/dL (30-55) 01/29/24 07:53 RDW 12.9 % (12.1-15.1) 01/29/24 07:53 Plt Count 285 10^3/cmm (157-399) 01/29/24 07:53 MPV 10.3 fL (7.4-10.4) 01/29/24 07:53 Neut % (Auto) 64.6 % 01/29/24 07:53 Lymph % (Auto) 27.6 % 01/29/24 07:53 [place] % (Auto) 5.4 % 01/29/24 07:53 Eos % (Auto) 1.4 % 01/29/24 07:53 Baso % (Auto) 0.4 % 01/29/24 07:53 Neut # (Auto) 4.46 10^3/uL (1.8-7.7) 01/29/24 07:53 Lymph # (Auto) 1.9 10^3/uL (0.8-4.8) 01/29/24 07:53 [place] # (Auto) 0.4 10^3/uL (0.2-0.9) 01/29/24 07:53 Eos # (Auto) 0.1 10^3/uL (0.0-0.8) 01/29/24 07:53 Baso # (Auto) 0.0 10^3/uL (0.0-0.1) 01/29/24 07:53 Nucleated RBC % (auto) 0 % 01/29/24 07:53 Nucleated RBCs # 0.0 /100WBC 01/29/24 07:53 Ser , Semi-Qnt 7168.00 mIU/mL 01/29/24 07:53 No radiology studies performed this visit (Ultrasound to be done in OB) Discharge Plan Discharge Patient Disposition: Home Clinical Impression: Vaginal bleeding, Supervision of other high-risk Condition: Stable Prescriptions: No Action DHA 200 mg capsule PO ferrous sulfate 325 mg (65 mg iron) tablet 325 mg PO DAILY Discharge Orders: Discharge ED (Routine); Ordered 01/29/24 Ordered By: Harsha Bean Referrals: Jake Osei MD [Primary Care Provider] - Patient Instructions: Opioid Safety, Pain Management Coding Level of Care Code ED [employer]
--- NOTE | 2024-01-29 07:47 | US_ITS ---
WS: [id number] ULTRASOUND OB FOCUSED HISTORY: Vaginal bleeding 19 weeks 5 days COMPARISON: 01/07/2024 Single intrauterine gestation is identified in cephalic presentation. The cervix appears closed. The entire cervix is not well visualized as it is partially obscured by shadowing. heart rate at 145 BPM. Placenta is anterior with no previa or abruption. Placenta grade 1. Normal amount of amniotic fluid. Single vertical pocket measuring 6 3.2 cm. US/US OB limited [id number] IMPRESSION: 1. Normal anterior placenta with no abruption or previa. 2. Normal amniotic fluid. 3. Visualized cervix is closed.
[2024-01-29 08:04] LABS: Basophils % 0.4 %; Eosinophils # 0.1 10^3/uL (0.0-0.8); Eosinophils % 1.4 %; Hematocrit 36.1 % (36-47); Lymphocytes # 1.9 10^3/uL (0.8-4.8); Lymphocytes % 27.6 %; Mean Corpuscular HGB Conc 32.4 g/dL (30-55); Mean Corpuscular Hemoglobin 29.9 pg (27-33); Mean Corpuscular Volume 92.3 fl (85-98); Mean Platelet Volume 10.3 fL (7.4-10.4); Monocytes # 0.4 10^3/uL (0.2-0.9); Monocytes % 5.4 %; Neutrophils # 4.46 10^3/uL (1.8-7.7); Neutrophils % 64.6 %; Nucleated Red Blood Cells % 0 %; Platelet Count 285 10^3/cmm (157-399); Red Blood Count 3.91 10^6/uL (3.85-5.65); Red Cell Distribution Width 12.9 % (12.1-15.1); White Blood Count 6.91 10^3/uL (3.29-11.43)
[2024-01-29 08:49] LABS: Alanine Aminotransferase 33 U/L (0-33); Albumin Level 3.7 g/dL (3.5-5.2); Alkaline Phosphatase 56 U/L (35-105); Anion Gap 14.7 (5-19); Aspartate Amino Transferase 30 U/L (0-32); Blood Urea Nitrogen 7 mg/dL (6-20); Calcium 8.2 mg/dL (8.5-10.5); Carbon Dioxide 21 mmol/L (22-29); Chloride 104 mmol/L (98-107); Creatinine Clr Calc Pharmacy 261.3309; Globulin 3.2 g/dL (1.3-4.6); Glomerular Filtration Rate 201.5 mL/min (90-130); Glucose 131 mg/dL (65-115); Osmolality Calculated 282 mOsm/kg (285-295); Potassium 3.7 mmol/L (3.5-5.1); Sodium 136 mmol/L (136-145); Total Bilirubin 0.3 mg/dL (0.15-1.2); Total Protein 6.9 g/dL (6.6-8.7)
--- NOTE | 2024-01-29 08:50 | PC.NURSE ---
0750 patient wheeled to OB per dr. ambrocio. unable to assess patient due to immediate transfer over to OB. pt stable upon trasport to OB.
== END 2024-01-29 08:55 | disposition home or self-care (01) ==
PROVIDERS: Emergency Provider Family Medicine; PCP Obstetrics & Gynecology
DX: O20.9 Hemorrhage in early pregnancy, unspecified (principal); Z3A.19 19 weeks gestation of pregnancy
CPT/HCPCS: 36415; 76815; 80053; 84702; 85025; 99284

== ENCOUNTER 2024-01-29 07:55 | Outpatient (CLI) | payer MEDICAID, SELFPAY ==
[2024-01-29 08:13] VITALS: BP 110/57; PULSE 86
[2024-01-29 08:18] VITALS: RESP 17
--- NOTE | 2024-01-29 08:25 | PC.NURSE ---
Brandt LEVI dopplered t @155
[2024-01-29 08:40] LABS: Bilirubin Urine Negative (Negative); Blood Urine Negative (Negative); Glucose Urine UA Negative (Normal); Ketones Urine Negative (Negative); Leukocyte Esterase Urine Trace (Negative); Nitrate Urine Negative (Negative); Protein Urine 1+ (Negative); Urine Appearance Clear (CLEAR); Urine Color Yellow (Yellow); pH Urine 6.5 (5-7)
[2024-01-29 08:43] LABS: Bacteria Urine None Seen /hpf; Hyaline Casts Urine 0-4 /lpf; RBC Urine 0-2 /hpf (0-2); Squamous Epithelial Cell Urine 0-5 /hpf (0-5); WBC Urine 0-5 /hpf (0-5)
[2024-01-29 09:24] VITALS: BP 115/56; PULSE 74
[2024-01-29 09:26] VITALS: BP 115/56; PULSE 74
== END 2024-01-29 09:26 | disposition home or self-care (01) ==
LOC: OPOB 08:03 → OBGYN 08:06
PROVIDERS: PCP Obstetrics & Gynecology; Visit Provider Obstetrics & Gynecology
DX: O46.90 Antepartum hemorrhage, unspecified, unspecified trimester (principal); Z3A.00 Weeks of gestation of pregnancy not specified
CPT/HCPCS: 81001; 99211

== ENCOUNTER → 2024-02-11 14:19 | Outpatient (BNVA) | payer MEDICAID, SELFPAY | PROVIDERS: PCP Obstetrics & Gynecology; Visit Provider Obstetrics & Gynecology | DX: Z36.2 Encounter for other antenatal screening follow-up (principal); Z3A.21 21 weeks gestation of pregnancy | CPT/HCPCS: 76805 ==

== ENCOUNTER → 2024-02-26 14:35 | Outpatient (BNVA) | payer MEDICAID, SELFPAY | PROVIDERS: PCP Obstetrics & Gynecology; Visit Provider Obstetrics & Gynecology | DX: O09.892 Supervision of other high risk pregnancies, second trimester (principal) | CPT/HCPCS: 76816 ==

== ENCOUNTER → 2024-03-18 08:17 | Outpatient (BNVA) | payer MEDICAID, SELFPAY | PROVIDERS: PCP Obstetrics & Gynecology; Visit Provider Nurse Practitioner Women's Health | DX: O09.899 Supervision of other high risk pregnancies, unspecified trimester (principal); O34.219 Maternal care for unspecified type scar from previous cesarean delivery | CPT/HCPCS: 82950; 84315 ==

== ENCOUNTER → 2024-04-07 13:20 | Outpatient (BNVA) | payer MEDICAID, SELFPAY | PROVIDERS: Visit Provider Obstetrics & Gynecology | DX: O09.892 Supervision of other high risk pregnancies, second trimester (principal); O26.892 Other specified pregnancy related conditions, second trimester; Z67.91 Unspecified blood type, Rh negative | CPT/HCPCS: 84315; 85025 ==

== ENCOUNTER → 2024-04-24 09:57 | Outpatient (BNVA) | payer MEDICAID, SELFPAY | PROVIDERS: Visit Provider Obstetrics & Gynecology | DX: O09.899 Supervision of other high risk pregnancies, unspecified trimester (principal) | CPT/HCPCS: 84315 ==

== ENCOUNTER → 2024-05-08 08:10 | Outpatient (BNVA) | payer MEDICAID, SELFPAY | PROVIDERS: Visit Provider Nurse Practitioner Women's Health | DX: O09.899 Supervision of other high risk pregnancies, unspecified trimester (principal) | CPT/HCPCS: 84315 ==

== ENCOUNTER → 2024-05-22 10:28 | Outpatient (BNVA) | payer MEDICAID, SELFPAY | PROVIDERS: Visit Provider Nurse Practitioner Women's Health | DX: O09.899 Supervision of other high risk pregnancies, unspecified trimester (principal) | CPT/HCPCS: 76816; 84315; 87081 ==

== ENCOUNTER → 2024-05-29 08:14 | Outpatient (BNVA) | payer MEDICAID, SELFPAY | PROVIDERS: Visit Provider Nurse Practitioner Women's Health | DX: Z34.80 Encounter for supervision of other normal pregnancy, unspecified trimester (principal) | CPT/HCPCS: 84315 ==

== ENCOUNTER → 2024-06-05 09:20 | Outpatient (BNVA) | payer MEDICAID, SELFPAY | PROVIDERS: Visit Provider Obstetrics & Gynecology | DX: O09.899 Supervision of other high risk pregnancies, unspecified trimester (principal) | CPT/HCPCS: 84315 ==

== ENCOUNTER 2024-06-12 17:19 | Inpatient (IN) | payer MEDICAID, SELFPAY ==
[2024-06-12] VITALS (23 sets, daily range): BP systolic 119–157; BP diastolic 64–107; PULSE 64–96; TEMP 36.5–36.9; BMI 37.5
[2024-06-12 18:01] LABS: Basophils % 0.4 %; Eosinophils # 0.1 10^3/uL (0.0-0.8); Eosinophils % 1.1 %; Hematocrit 38.3 % (36-47); Lymphocytes # 2.7 10^3/uL (0.8-4.8); Lymphocytes % 29.5 %; Mean Corpuscular HGB Conc 32.9 g/dL (30-55); Mean Corpuscular Hemoglobin 29.8 pg (27-33); Mean Corpuscular Volume 90.5 fl (85-98); Mean Platelet Volume 10.7 fL (7.4-10.4); Monocytes # 0.6 10^3/uL (0.2-0.9); Monocytes % 6.1 %; Neutrophils # 5.68 10^3/uL (1.8-7.7); Neutrophils % 62.2 %; Nucleated Red Blood Cells % 0 %; Platelet Count 326 10^3/cmm (157-399); Red Blood Count 4.23 10^6/uL (3.85-5.65); Red Cell Distribution Width 13.6 % (12.1-15.1); White Blood Count 9.13 10^3/uL (3.29-11.43)
--- NOTE | 2024-06-12 18:20 | P.HP_ITS ---
Providers/Chief Complaint 2 Admitting Physician: Sj Caballero MD Primary CASUALTY CLAIM ADJUSTER: Jake Osei MD Chief Complaint: IOL HPI CASUALTY CLAIM ADJUSTER History of Present Illness Ama Tyler is a 24 year old female EDC June 19, 2024 At 39 w 0 d No complications h/o low-transverse x one for breech wants trial of labor after desires induction of labor no c/o + active movements Present Details : 2 Para: 1 Labs Rubella: Non-Immune RPR: Negative GBS: Negative Medications/Allergies Home Medications ?Medication ?Instructions ?Recorded ?Confirmed ?Last Taken ?Type docosahexaenoic acid 200 mg mg PO 11/13/23 06/12/24 Un known History capsule ( DHA) Allergies Allergy/AdvReac Type Severity Reaction Status Date / Time cefdinir (From [employer]) AdvReac breaks out Verified 06/12/24 08:06 PFSH CASUALTY CLAIM ADJUSTER 2 PFSH: Medical History Rh negative status during No pertinent past medical history neghx: htn,dm,thyroid,dvt/pe PCP: None Surgical History Hx of section (~07/2022) Primary LTCS performed for complete breech presentation. [facility]ty at [facility]. Family History Denies family history of Colon cancer Ovarian cancer Diabetes Heart disease Hypercholesteremia Breast cancer Hypertension Uterine cancer Thyroid disease Stroke Social History Smoking and tobacco/nicotine status: never used tobacco/nicotine History History History 2 2 Term 1 0 Miscarriages/Ectopic 0 Living Children 1 Care MARGRET Calculator 2 Estimated Delivery Date Method Current WG Current Estimate 06/19/24 Ultrasound #1 39w 0d Other Estimates 05/16/24 LMP (Certain) 43w 6d Specific Issues/Plans * RH NEGATIVE --- RHOGAM GIVEN 05/12/2024 * PREVIOUS - Primary LTCS for breech presentation; desires TOLAC * OBESITY Vitals/I&O/Wt Last Vital Signs Temp 97.7 F 06/12/24 17:40 Pulse 69 06/12/24 22:16 BP 139/87 06/12/24 22:16 O2 Del Method Room Air 06/12/24 17:40 06/12/24 06/12/24 06/12/24 06:59 14:59 22:59 Intake Total 0.317 / 0.317 Balance 0.317 / 0.317 Weight last 48 hrs Weight 233 lb Physical Exam 2 Narrative: Weight 233 lbs; 5?5? VS normal General comfortable, awake, alert Lungs: clear Cor: RRR Abd: nontender Cervix: 1 cm / long / -3 / posterior Ext: no edema External monitor: heart tracing good variability, + accelerations OB sono 05-22-24 Vtx; EFW 59% Blood type Rh negative 1-h glucola 03-18-24 134 GBS 05-22-24 negative Data 06/12/24 17:30 Results Labs OB ([facility]): 2 Obstetrics US 05/22/24 Blood Type A Negative 06/12/24 Antibody Screen Positive 06/12/24 Hct 38.3 % (36-47) 06/12/24 Hgb 12.60 g/dL (11.27-16.99) 06/12/24 Rho(D) Type Rh negative 06/12/24 Plt Count 326 10^3/cmm (157-399) 06/12/24 Hep Bs Antigen Non-reactive (Nonreactive) 11/27/23 Hepatitis C Antibody Non-reactive (Nonreactive) 11/27/23 Rubella IgG Antibody 7.3 IU/mL (0.0-10.0) 11/27/23 RPR Nonreactive (Nonreactive) 11/27/23 HIV 1&2 Ab & HIV 1 Ag Non-reactive (Non-Reactiv) 11/27/23 TSH 1.28 uIU/mL (0.27-4.20) 11/13/23 C.trachomatis RNA (TMA) Not detected (NOT DETECTED) N.gonorrhoeae RNA (TMA) Not detected (NOT DETECTED) T. vaginalis Amp RNA Not detected (NOT DETECTED) 12/10/23 Chlamydia/GC Comment See note 12/10/23 Cystic Fibrosis Screen Negative 08/13/24 Glucose 1 Hr 50 gm 134 mg/dL (85-140) 03/18/24 Hemoglobin A1c 5.4 % (4.0-6.0) 11/13/23 Ser , Semi-Qnt 7168.00 mIU/mL 01/29/24 HCG, Qual Positive (Negative) H 11/13/23 Urine Opiates Screen Negative ng/mL (Negative) 11/27/23 Ur Barbiturates Screen Negative ng/mL (Negative) 11/27/23 Ur Phencyclidine Scrn Negative ng/mL (Negative) 11/27/23 Ur Amphetamines Screen Negative ng/mL (Negative) 11/27/23 U Benzodiazepines Scrn Negative ng/mL (Negative) 11/27/23 Urine Cocaine Screen Negative ng/mL (Negative) 11/27/23 U Marijuana (THC) Screen Negative ng/mL (Negative) 11/27/23 Micro Urine Specimen 11/27/23 Pap Smear Interpret See note 12/10/23 A&P Assessment and plan (1) Encounter for induction of labor: 39 w 0 d h/o low-transverse x one wants trial of labor after requests induction of labor I discussed with patient that there is no medical indication for induction of labor at this time also, since her cervix is not favorable, with a previous , I would not recommend induction of labor explained that labor induction can be prolonged explained risks of induction of labor, including uterine hyperstimulation, distress, increased rate, and, in particular, uterine scar rupture explained that if uterine scar rupture occurs, there may not be adequate time to perform a and resuscitative efforts may not be successful. compromise and can occur even if a was to be performed expeditiously. Option of waiting for natural labor offered to patient Patient still wants to proceed with labor induction. PDMP PDMP Reviewed: Not Reviewed Attestations 2 Medical Necessity Statement*: patient at 39 w 0 d, admitted for induction of labor Coding Level of Care Code Acute Code for Chg Fwd Diagnoses Encounter for induction of labor Z34.90 Time Spent (min) 60
[2024-06-12] MEDS: dextrose 5%-lactated ringers 1,000 ML 125 ML IV (19:30)
[2024-06-12] MEDS: oxytocin 30 UNIT/500 ML BAG IV (19:56)
[2024-06-12] MEDS: lactated ringers 1,000 ML 999 ML IV (23:19)
[2024-06-13] VITALS (93 sets, daily range): BP systolic 80–163; BP diastolic 40–128; PULSE 77–129; RESP 16; TEMP 36.9–37.1; O2SAT 88–100
[2024-06-13] MEDS: lactated ringers 1,000 ML 999 ML IV ×2 (00:21→01:41)
--- NOTE | 2024-06-13 00:43 | P.ANESASSM_ITS ---
Pre-Anesthetic Assessment Height/Weight: Height 1.68 m Weight 105.687 kg Temp Pulse BP Pulse Ox O2 Del Method 97.7 F 86 127/60 100 Room Air 06/12/24 17:40 06/13/24 00:40 06/13/24 00:40 06/13/24 00:36 06/12/24 17:40 Preop Diagnosis: IUP Labor Epidural Familial anesthetic complications: None Was Beta Nikki taken within 24 hours: N/A Was Clonidine taken within 24 hours: N/A Last intake: 06/12/1729 MEAL CLEARS- CURRENT Social No alcohol and No tobacco Exam alert, oriented x 3 and clear to auscultation bilaterally Airway Submandibular: within normal limits Cervical ROM: within normal limits Mallampati: Class II Dentition: full History/ROS No significant history except as noted Pulmonary None reported CV/HEM None reported None reported Hepatic None reported GI Gastroesophageal Reflux Disease Metabolic Morbid Obesity [facility] None reported Neuropsych None reported Anesthetic Plan ASA status: 2 Anesthesia: Regional (specify below) Other: Labor Epidural Medications/Allergies Home Medications ?Medication ?Instructions ?Recorded ?Confirmed ?Last Taken ?Type docosahexaenoic acid 200 mg mg PO 11/13/23 06/12/24 Un known History capsule ( DHA) Allergies Allergy/AdvReac Type Severity Reaction Status Date / Time cefdinir (From [employer]) AdvReac breaks out Verified 06/12/24 08:06 Current Medications Generic Name Dose Route Start Last Admin Trade Name Freq PRN Reason Stop Dose Admin Dextrose/Lactated Ringer's 1,000 mls @ 125 mls/hr 06/12/24 17:45 06/12/24 23:19 Dextrose 5%-Lactated Ringers IV 0 mls/hr .Q8H LICHA Infusion Oxytocin 30 unit in 500 mls @ 1 mls/hr 06/12/24 19:00 06/12/24 20:15 Pitocin IV 2 milliunit/min .Q24H LICHA 2 mls/hr Titration Protocol 1 MILLIUNIT/MIN Lactated Ringer's 1,000 mls @ 999 mls/hr 06/12/24 23:02 06/12/24 23:19 Lactated Ringers IV 999 mls/hr .Q1H1M PRN Administration See label comments PFSH Anesthesia Medical History Rh negative status during No pertinent past medical history neghx: htn,dm,thyroid,dvt/pe PCP: None Surgical History Hx of section (~07/2022) Primary LTCS performed for complete breech presentation. [facility] at [facility]. Family History Denies family history of Colon cancer Ovarian cancer Diabetes Heart disease Hypercholesteremia Breast cancer Hypertension Uterine cancer Thyroid disease Stroke Social History Smoking and tobacco/nicotine status: never used tobacco/nicotine Female Reproductive History : 2 Data Anesthesia 06/12/24 17:30 Short CBC 06/12/24 Range/Units 17:30 WBC 9.13 (3.29-11.43) 10^3/uL Hgb 12.60 (11.27-16.99) g/dL Hct 38.3 (36-47) % MCV 90.5 (85-98) fl Plt Count 326 (157-399) 10^3/cmm Neut % (Auto) 62.2 % Neut # (Auto) 5.68 (1.8-7.7) 10^3/uL Blood Bank 06/12/24 17:30 Blood Type A Negative Rho(D) Type Rh negative Antibody Screen Positive Cardiac Studies: 2 No Data to Display Anesthesia Procedures Epidural Time Out Performed: Yes Consents Signed: Procedure Consent Consent: from patient, risks and benefits reviewed and patient agrees to proceed Lumbar Level: L3-L4 Epidural position: sitting Epidural procedure: sterile prep of area, 1% lidocaine to numb the area, negative for paresthesia passed, test dose given, 1.5% xylocaine 1:200k epi (5), placed PCEA, no systemic response, sterile dressing applied, L.U.D. no apparent complications and 0.2% Ropiavacaine @ mls/hr (10) Additional Comments: JESSIKA @ 7cm , first attempt, - heme -csf. catheter threaded to 13cm with ease. Adequate analgesia achieved.
[2024-06-13] MEDS: ROPivacaine syringe 100 MG/50 ML SYRINGE 10 MG EPIDURAL ×3 (00:50→07:39)
[2024-06-13] MEDS: ePHEDrine 50 mg/mL Inj 10 MG IVP ×2 (01:54→02:50)
[2024-06-13] MEDS: dextrose 5%-lactated ringers 1,000 ML 121 ML IV (05:18)
--- NOTE | 2024-06-13 10:34 | P.PCNOB_ITS ---
Delivery Note: Date of delivery: June 13, 2024 Pre-delivery diagnoses: 39 w 0 d h/o low-transverse x one desires trial of labor admitted for induction of labor Post-delivery diagnoses: 39 w 0 d h/o low-transverse x one desires trial of labor admitted for induction of labor vaginal delivery repair of second-degree perineal laceration Procedure: induction of labor vaginal delivery repair of second-degree perineal laceration Op report anesthesia: Epidural Delivering Physician: Sj Caballero MD Estimated blood loss (mL): 300 Findings: , vigorous male infant + nuchal cord, reduced Cord gases and blood obtained 2 cm second-degree perineal laceration r epaired EBL: 300 cc No complications Pre-Delivery Course: normal labor course Delivery: vaginal Post-Delivery Status: good History History History 2 Term 1 0 Miscarriages/Ectopic 0 Living Children 1 A&P Assessment and plan (1) Vaginal delivery: PDMP PDMP Reviewed: Not Reviewed Coding Level of Care Code Acute Code for Chg Fwd Diagnoses Vaginal delivery O80 Time Spent (min) 60
--- NOTE | 2024-06-13 14:00 | ANE.PACU2 ---
Inpatient post-anesthesia follow up: Airway intact: Yes Vital signs: Temperature 98.4 F Pulse Rate 86 Respiratory Rate 16 Blood Pressure 125/69 Pulse Oximetry 97 Oxygen Delivery Me thod Room Air Oxygen Flow Rate Fraction of Inspir ed Oxygen Hydration adequate: Yes Nausea and vomiting: No Pain level: 1 Mental status: Baseline Epidural Start/End: Epidural Start Date: 06/13/24 Epidural Start Time: 00:48 Epidural End Date: 06/13/24 Epidural End Time: 10:53
[2024-06-13] MEDS: ibuprofen 800 mg tablet PO ×2 (15:42→21:46)
[2024-06-13] MEDS: benzocaine-menthol 78 gm Canister 1 SPRAY TOPICAL (15:43)
[2024-06-13] MEDS: docusate sodium 100 mg Capsule PO (21:46)
[2024-06-13 21:58] LABS: Mean Corpuscular HGB Conc 32.6 g/dL (30-55); Mean Corpuscular Hemoglobin 29.7 pg (27-33); Mean Corpuscular Volume 91.2 fl (85-98); Mean Platelet Volume 10.6 fL (7.4-10.4); Platelet Count 262 10^3/cmm (157-399); Red Cell Distribution Width 13.6 % (12.1-15.1); White Blood Count 12.25 10^3/uL (3.29-11.43)
[2024-06-14] VITALS: BP 96/52; PULSE 74; RESP 16; O2SAT 95
[2024-06-14 04:04] VITALS: BP 116/67; PULSE 76; RESP 16; TEMP 36.7; O2SAT 97
[2024-06-14] MEDS: ibuprofen 800 mg tablet PO (09:00)
[2024-06-14] MEDS: PRENATAL VIT NO.130/IRON/FOLIC 1 EACH TABLET PO (09:00)
[2024-06-14] MEDS: docusate sodium 100 mg Capsule PO (09:00)
[2024-06-14 09:13] VITALS: BP 121/74; PULSE 74; RESP 16; TEMP 36.8; O2SAT 97
[2024-06-14 09:42] VITALS: BP 117/74; PULSE 74; RESP 16; TEMP 36.7
[2024-06-14 12:50] VITALS: BP 125/69; PULSE 86; RESP 16; TEMP 36.9
--- NOTE | 2024-06-14 14:05 | PM.OBGYDC ---
Discharge Providers PLAY WRITER Date of Admission: 06/12/24 17:19 Date of Discharge: 06/14/24 Attending Provider at Admission: Sj Caballero MD Attending Provider at Discharge: Sj Caballero MD Consults: none Primary PLAY WRITER: Jake Osei MD Diagnoses at Discharge Discharge Diagnosis (1) Vaginal delivery: Details from hospital stay: 24 y.o. at 39 w 0 d h/o previous low-transverse no complications admitted for induction of labor patient desires trial of labor after patient was started on pitocin She progressed to complete dilatation fetus was reassuring throughout patient had vaginal delivery with repair of second-degree perineal laceration without any complications patient did well and was discharged to home on the first day Status: Inactive Reason for Visit Reason for Visit: IOL Brief History: 24 y.o. at 39 w 0 d h/o previous low-transverse no complications admitted for induction of labor patient desires trial of labor after Hospital Course Hospital Course 24 y.o. at 39 w 0 d h/o previous low-transverse no complications admitted for induction of labor patient desires trial of labor after patient was started on pitocin She progressed to complete dilatation fetus was reassuring throughout patient had vaginal delivery with repair of second-degree perineal laceration without any complications patient did well and was discharged to home on the first day Information Peripartum Data: Infant Delivery Method: Vaginal Laceration description: Perineal - 2nd Degree Episiotomy description: None complications: none Physical Exam Narrative: afebrile, VS normal comfortable, awake, alert Abd: soft, nontender. fundus firm Ext: no edema; nontender Urinary Catheter Management: Aguirre: Cath Placed During This Visit: yes, but has since been removed by the nurse Reason for Continuing Indwelling Catheter: Decision to DC Catheter Urinary Catheter Date of Insertion: 06/13/24 Urinary Catheter Time of Insertion: 02:00 Date Urinary Catheter Removed: 06/13/24 Time Urinary Catheter Discontinued: 09:33 History History History 2 Term 1 0 Miscarriages/Ectopic 0 Living Children 1 Discharge Data Studies Completed and Pending Laboratory Results WBC 12.25 10^3/uL (3.29-11.43) H 06/13/24 21:47 RBC 3.40 10^6/uL (3.85-5.65) L 06/13/24 21:47 Hgb 10.10 g/dL (11.27-16.99) L 06/13/24 21:47 Hct 31.0 % (36-47) L 06/13/24 21:47 MCV 91.2 fl (85-98) 06/13/24 21:47 MCH 29.7 pg (27-33) 06/13/24 21:47 MCHC 32.6 g/dL (30-55) 06/13/24 21:47 RDW 13.6 % (12.1-15.1) 06/13/24 21:47 Plt Count 262 10^3/cmm (157-399) 06/13/24 21:47 MPV 10.6 fL (7.4-10.4) H 06/13/24 21:47 Neut % (Auto) 62.2 % 06/12/24 17:30 Lymph % (Auto) 29.5 % 06/12/24 17:30 Oliver % (Auto) 6.1 % 06/12/24 17:30 Eos % (Auto) 1.1 % 06/12/24 17:30 Baso % (Auto) 0.4 % 06/12/24 17:30 Neut # (Auto) 5.68 10^3/uL (1.8-7.7) 06/12/24 17:30 Lymph # (Auto) 2.7 10^3/uL (0.8-4.8) 06/12/24 17:30 Oliver # (Auto) 0.6 10^3/uL (0.2-0.9) 06/12/24 17:30 Eos # (Auto) 0.1 10^3/uL (0.0-0.8) 06/12/24 17:30 Baso # (Auto) 0.0 10^3/uL (0.0-0.1) 06/12/24 17:30 Nucleated RBC % (auto) 0 % 06/12/24 17: Nucleated RBCs # 0.0 /100WBC 06/12/24 17:30 Blood Type A Negative 06/12/24 17:30 Rho(D) Type Rh negative 06/12/24 17:30 Antibody Screen Positive 06/12/24 17:30 Antibody Identification Anti-D 06/12/24 17:30 Screen Negative (Negative) 06/13/24 21:47 Procedures Performed induction of labor vaginal delivery repair of second-degree perineal laceration Vitals Last Vital Signs Temp 98.4 F 06/14/24 12:50 Pulse 86 06/14/24 12:50 Resp 16 06/14/24 12:50 BP 125/69 06/14/24 12:50 Pulse Ox 97 06/14/24 09:13 O2 Del Method Room Air 06/14/24 09:13 Results Labs OB ([facility]): Obstetrics US 05/22/24 Blood Type A Negative 06/12/24 Antibody Screen Positive 06/12/24 Hct 31.0 % (36-47) L 06/13/24 Hgb 10.10 g/dL (11.27-16.99) L 06/13/24 Rho(D) Type Rh negative 06/12/24 Plt Count 262 10^3/cmm (157-399) 06/13/24 Hep Bs Antigen Non-reactive (Nonreactive) 11/27/23 Hepatitis C Antibody Non-reactive (Nonreactive) 11/27/23 Rubella IgG Antibody 7.3 IU/mL (0.0-10.0) 11/27/23 RPR Nonreactive (Nonreactive) 11/27/23 HIV 1&2 Ab & HIV 1 Ag Non-reactive (Non-Reactiv) 11/27/23 TSH 1.28 uIU/mL (0.27-4.20) 11/13/23 C.trachomatis RNA (TMA) Not detected (NOT DETECTED) 12/10/23 N.gonorrhoeae RNA (TMA) Not detected (NOT DETECTED) 12/10/23 T. vaginalis Amp RNA Not detected (NOT DETECTED) 12/10/23 Chlamydia/GC Comment See note 12/10/23 Cystic Fibrosis Screen Negative 11/27/23 Glucose 1 Hr 50 gm 134 mg/dL (85-140) 03/18/24 Hemoglobin A1c 5.4 % (4.0-6.0) 11/13/23 Ser , Semi-Qnt 7168.00 mIU/mL 01/29/24 HCG, Qual Positive (Negative) H 11/13/23 Urine Opiates Screen Negative ng/mL (Negative) 11/27/23 Ur Barbiturates Screen Negative ng/mL (Negative) 11/27/23 Ur Phencyclidine Scrn Negative ng/mL (Negative) 11/27/23 Ur Amphetamines Screen Negative ng/mL (Negative) 11/27/23 U Benzodiazepines Scrn Negative ng/mL (Negative) 11/27/23 Urine Cocaine Screen Negative ng/mL (Negative) 11/27/23 U Marijuana (THC) Screen Negative ng/mL (Negative) 11/27/23 Micro Urine Specimen 11/27/23 Pap Smear Interpret See note 12/10/23 Discharge Plan Discharge Patient Disposition: Home Condition: Stable Prescriptions: Continued DHA 200 mg capsule 200 mg PO DAILY Discharge Orders: Discharge Order (Routine); Ordered 06/14/24 Ordered By: Sj Caballero Referrals: Sj Caballero MD [Physician] - (CALL SUNDAY AND MAKE FOLLOW UP APPOINTMENT WITH VIRGIL FREED OR TORY CASAS FOR FOLLOW UP. [phone] ) Discharge Diet: Usual diet Discharge Activity: Increase activity as tolerated Patient Instructions: Depression (DC), Opioid Safety (DC), Preeclampsia and Eclampsia After Delivery (GEN), Hemorrhage (DC), OB Discharge Report, OB Food/Drug Interaction Guide, Opioid Safety, OB Home Care, OB Vaginal Deliveries - [facility], Abnormal Bleeding Discharge Attestations PLAY WRITER Time Spent in Discharge Care*: less than 30 min Coding Level of Care Code Acute Code for Chg Fwd Diagnoses Vaginal delivery O80
== END 2024-06-14 13:00 | disposition home or self-care (01) | DRG 806 ==
LOC: OBGYN 17:19
PROVIDERS: Admitting Provider Obstetrics & Gynecology; Visit Provider Obstetrics & Gynecology
DX: O69.81X0 Labor and delivery complicated by cord around neck, without compression, not applicable or unspecified (principal); O36.0930 Maternal care for other rhesus isoimmunization, third trimester, not applicable or unspecified; Z37.0 Single live birth; O70.1 Second degree perineal laceration during delivery; O99.214 Obesity complicating childbirth; E66.01 Morbid (severe) obesity due to excess calories; Z3A.39 39 weeks gestation of pregnancy; O75.89 Other specified complications of labor and delivery; K21.9 Gastro-esophageal reflux disease without esophagitis
CPT/HCPCS: 36415; 36430; 51702; 59025; 59409; 80503; 81000; 85025; 85027; 85460; 86850; 86870; 86900; 90384; 96374; 96376; 99211; J2590; J2795; J7120; J7121